=== PATIENT | male | born 1985 | race African-American/Black ===

== ENCOUNTER 2017-07-27 08:21 | Emergency (ER) | payer OTHER ==
[2017-07-27 09:20] LABS: BILIRUBIN,URINE NEGATIVE (NEGATIVE); GLUCOSE, URINE (UA) NEGATIVE (NEGATIVE); KETONES,URINE (UA) NEGATIVE (NEGATIVE); LEUKOCYTE ESTERASE, URINE MODERATE (NEGATIVE); NITRITE,URINE NEGATIVE (NEGATIVE); OCCULT BLOOD,URINE LARGE (NEGATIVE); PROTEIN,URINE 100 mg/dL (NEGATIVE); UROBILINOGEN,URINE 0.2 (NORMAL) E.U./dL (NORMAL)
[2017-07-27 09:21] LABS: CLARITY,URINE SL. CLOUDY (CLEAR)
--- NOTE | 2017-07-27 09:25 | ED Physician Documentation ---
History of Present Illness - Stated complaint Stated Complaint: blood in urine - Chief complaint Chief Complaint: UTI - Additonal information Additional information: hx from pt 32 AD [place] male painless gross hematuria X 3 this AM no fever no abd pain no kidney pain no dysuria Review of Systems Constitutional: denies: Fever GI: denies: Abdominal Pain, Nausea, Vomiting : reports: Hematuria. denies: Dysuria Musculoskeletal: denies: Back pain Endocrine: denies: Easy bruising / bleeding PD PAST MEDICAL HISTORY - Past Medical History Cardiovascular: None Respiratory: None GI: None : None - Past Surgical History Past Surgical History: No - Present Medications Home Medications: Ambulatory Orders Medication Instructions Recorded Confirmed Cephalexin [Keflex] 500 mg PO Q6H #28 capsule 07/27/17 - Allergies Allergies/Adverse Reactions: Allergies Allergy/AdvReac Type Severity Reaction Status Date / Time No Known Drug Allergies Allergy Verified 07/27/17 08:37 - Social History Does the pt smoke?: No Smoking Status: Never smoker Does the pt drink ETOH?: No Does the pt have substance abuse?: No - Immunizations Immunizations are current?: Yes - POLST Patient has POLST: No PD ED PE NORMAL - Vitals Vital signs reviewed: Yes - Neck Neck: Supple, no meningeal sign - Cardiac Cardiac: RRR - Respiratory Respiratory: No respiratory distress, Clear bilaterally - Abdomen Abdomen: Soft, Non tender - Male Male : Other (circ, no dc, no lesions, no blood at meatus, testes desc anish and NT) - Back Back: No CVA TTP - Derm Derm: Normal color - Neuro Neuro: Alert and oriented X 3 Results - Vitals Vitals: Vital Signs - 24 hr 07/27/17 07/27/17 08:34 11:45 Temperature 36.4 C L Heart Rate 72 68 Respiratory 14 14 Rate Blood Pressure 128/72 120/69 O2 Saturation 97 100 Oxygen O2 Source Room air - Labs Labs: Laboratory Tests 07/27/17 07/27/17 07/27/17 08:41 11:45 11:45 WBC 12.5 H RBC 5.86 Hgb 16.8 Hct 48.1 MCV 82.0 MCH 28.6 MCHC 34.9 RDW 13.5 Plt Count 181 MPV 7.9 Neut # 9.5 H Lymph # 2.0 [place] # 0.8 Eos # 0.1 Baso # 0.0 Absolute Nucleated RBC 0.01 Nucleated RBC % 0.1 Sodium 138 Potassium 3.5 Chloride 99 L Carbon Dioxide 26 Anion Gap 13.0 BUN 10 Creatinine 0.9 Estimated GFR (MDRD) 119 Glucose 90 Calcium 10.3 Urine Color LT RED Urine Clarity SL. CLOUDY Urine pH 6.0 Ur Specific [place] <=1.005 Urine Protein 100 H Urine Glucose (UA) NEGATIVE Urine Ketones NEGATIVE Urine Occult Blood LARGE H Urine Nitrite NEGATIVE Urine Bilirubin NEGATIVE Urine Urobilinogen 0.2 (NORMAL) Ur Leukocyte Esterase MODERATE H Urine RBC 6-10 H Urine WBC 11-25 H Ur Squamous Epith Cells NONE SEEN Urine Bacteria Few Ur Microscopic Review INDICATED Urine Culture Comments INDICATED - Rads (name of study) kidney bladder sono Radiology: See rad report (no mass, appears pt has papillary necrosis which would indicate chronic kidney disease) CT IVP Radiology: See rad report (no stone, no mass, papillary necrosis which would indicate chronci kindey disease such as from DM or recurrent infections) PD MEDICAL DECISION MAKING - ED course ED course: no stone probable infection sono showed no hydro but possible mass and CT IVP rec and done - did not show mass after all but did dhow papilalry necrosis indicating chronic kidney dz this is as far as can be worked up in ER feel pt safe for dc will dc on antibiotics for possible infection, gave images on disk, needs to go to [place] [facility] to get referral to nephrology for further eval Departure - Departure Disposition: 01 Home, Self Care Clinical Impression: Abnormal CT of the abdomen Hematuria Qualifiers: Hematuria type: gross Qualified Code(s): R31.0 - Gross hematuria UTI (urinary tract infection) Qualifiers: Urinary tract infection type: site unspecified Hematuria presence: with hematuria Qualified Code(s): N39.0 - Urinary tract infection, site not specified ; R31.9 - Hematuria, unspecified; R31.9 - Hematuria, unspecified Condition: Good Instructions: ED UTI Cystitis Male, ED Hematuria Follow-Up: LAKHWINDER ROY [Primary Care Provider] - Prescriptions: Cephalexin [Keflex] 500 mg PO Q6H #28 capsule Comments: The urine test shows a slight infection so i have prescribed antibiotics The ultrasound did not show any signs of kidney stones but did see a possible kidney mass So we got the CT scan the radiologist recommended and it did not show a mass thankfully - but the radiologist says you evidence of kidney disease and need further evaluation with a english lecturer. You can go home for now Please take the antibiotics as prescribed Please follow up at [facility] tomorrow to get a referral to nephrology ( kidney doctors) Do not take motrin or naproxen because they are hard on your kidneys. 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 Please return to the ER if worse in the mean time
[2017-07-27 09:28] LABS: BACTERIA,URINE Few /HPF (None Seen); SQUAMOUS EPITHELIAL CELL,UR NONE SEEN (<= Few)
[2017-07-27 11:59] LABS: BASOPHILS % (AUTO) 0.3 %; EOSINOPHILS # (AUTO) 0.1 10^3/uL (0.0-0.7); EOSINOPHILS % (AUTO) 0.6 %; HGB - HEMOGLOBIN 16.8 g/dL (14.0-18.0); LYMPHOCYTES % (AUTO) 16.4 %; MEAN CORPUSCULAR HEMOGLOBIN 28.6 pg (27.0-31.0); MEAN CORPUSCULAR HGB CONC 34.9 g/dL (32.0-36.0); MEAN PLATELET VOLUME 7.9 fL (7.4-11.4); MONOCYTES # (AUTO) 0.8 10^3/uL (0.0-1.0); MONOCYTES % (AUTO) 6.7 %; NEUTROPHILS # (AUTO) 9.5 10^3/uL (1.5-6.6); PLT - PLATELET COUNT 181 10^3/uL (130-450); RED BLOOD COUNT 5.86 10^6/uL (4.70-6.10); RED CELL DISTRIBUTION WIDTH 13.5 % (12.0-15.0); WHITE BLOOD COUNT 12.5 x10^3/uL (4.8-10.8)
[2017-07-27 12:03] LABS: CALCIUM 10.3 mg/dL (8.5-10.3); CREATININE 0.9 mg/dL (0.6-1.2)
[2017-07-27] MEDS ORDERED: IOPAMIDOL-300 100 ML VIAL ONE (12:29)
[2017-07-27] MEDS ORDERED: IOPAMIDOL-300 100 ML VIAL IVP ONE (12:45)
--- NOTE | 2017-07-27 13:26 | Ultrasound Report ---
DATE OF SERVICE: 07/27/2017 RENAL ULTRASOUND: 07/27/2017 CLINICAL INDICATION: Painless hematuria. TECHNIQUE: Real-time scanning was performed with advertising representative static images obtained. FINDINGS: The right kidney measures 8.3 x 5.0 x 4.3 cm. Renal cortical echotexture appears unremarkable. No hydronephrosis, focal renal lesion, or perinephric collection is seen. The left kidney measures 10.9 x 6.1 x 5.3 cm. There is mild lobulation of the cortex, but no definite mass lesion is present by ultrasound. No hydronephrosis or perinephric collection is seen. Prevoid, the urinary bladder measures 6.5 x 6.4 x 6.3 cm, yielding a pre-void volume of 138 mL Bilateral ureteral jets are visualized. No focal bladder wall lesion is appreciated. No significant postvoid residual. IMPRESSION: POSSIBLE LOBULATION OF THE CORTEX OF THE LEFT KIDNEY. CONSIDER CT IVP TO FURTHER EVALUATE FOR A POSSIBLE MASS. TD: 07/27/2017 13:25
--- NOTE | 2017-07-27 13:32 | CT Preliminary Report ---
Exam: CT IVP IMPRESSION: 1. 3 mm right and 7 x 8 mm left calyceal diverticulum versus papillary necrosis. Correlate clinically . 2. Large central disk herniation L5-S1. 3. Otherwise, normal exam. [facility] SITE ID: [id number]
--- NOTE | 2017-07-27 13:40 | CT Report ---
EXAM: CT ABDOMEN AND PELVIS WITHOUT AND WITH CONTRAST. EXAM DATE: 07/27/2017 01:04 PM. CLINICAL HISTORY: Painless hematuria. COMPARISONS: No prior CT exam. Retroperitoneal ultrasound earlier today. TECHNIQUE: Routine helical imaging was performed through the kidneys, ureters and bladder in the prec ontrast, and delayed phase. No venous phase obtained. IV Contrast: 100 cc [id number]. Reconstructions : Coronal and sagittal. In accordance with CT protocol optimization, one or more of the following dose reduction techniques w ere utilized for this exam: automated exposure control, adjustment of mA and/or KV based on patient s ize, or use of iterative reconstructive technique. FINDINGS: Lung Bases: Unremarkable. Right Kidney/Ureter: Right kidney measures 10.0 cm in length. There is a 3 mm diverticulum off a superior right renal jus x, coronal image 36. Right kidney and right ureter otherwise unremarkable. Left Kidney/Ureter: Left kidney measures 11.5 cm in length. There is a 7 x 8 mm diverticulum off an i nferior left renal calyx with a very small amount of associated cortical thinning, coronal image 32. Left kidney and left ureter otherwise unremarkable. Other Solid Organs: The liver, spleen, pancreas, gallbladder, and adrenal glands are unremarkable.The bile ducts are unremarkable. Peritoneal Cavity/Bowel: Normal. No free fluid, free air or adenopathy. No masses. Bowel loops are u nremarkable. Normal appendix. Pelvic Organs: No bladder stones, obstruction or masses. The visualized pelvic organs are unremarkabl e. Vasculature: Normal. Bones: Large central disk herniation L5-S1. Other: None. IMPRESSION: 1. 3 mm right and 7 x 8 mm left calyceal diverticulae versus papillary necrosis. Correlate clinically . 2. Large central disk herniation L5-S1. 3. Otherwise, normal exam. [facility] Referring Provider Line: [phone] SITE ID: [id number]
[2017-07-27 14:42] VITALS: BP 109/69
== END 2017-07-27 14:49 | disposition home or self-care (01) ==
LOC: ED 08:21
DX: N39.0 Urinary tract infection, site not specified (principal); R31.0 Gross hematuria; M51.27 Other intervertebral disc displacement, lumbosacral region
CPT/HCPCS: 36415; 74178; 76770; 80048; 81001; 85025; 87086; 99283; Q9967; 81003